=== PATIENT | male | born 1955 | race Caucasian/White ===

== ENCOUNTER 2016-10-18 13:24 | Emergency (ER) | payer BC ==
[~2016-10-18] VITALS: Ht 172.7 cm; Wt 100.0 kg
[2016-10-18] MEDS ORDERED: FLEXERIL10 MG PO (15:14)
[2016-10-18] MEDS ORDERED: NORCO 5/3251 TABLET PO (15:14)
[2016-10-18] MEDS ORDERED: ATORVASTATIN CA10 MG PO (15:23)
[2016-10-18] MEDS ORDERED: METOPROLOL SUCC25 MG PO (15:24)
[2016-10-18] MEDS ORDERED: LO-DOSE ASPIRIN81 M2 PO (15:25)
[2016-10-18 16:03] VITALS: BP 110/74
== END 2016-10-18 16:04 | disposition home or self-care (01) ==
LOC: EME 13:24 → EXP 13:24
PROC: 2W39X1Z Immobilization of Left Upper Extremity using Splint (ICD-10-PCS; principal; 2016-10-18)
DX: S52.502A Unspecified fracture of the lower end of left radius, initial encounter for closed fracture (principal); S52.611A Displaced fracture of right ulna styloid process, initial encounter for closed fracture; V00.318A Other snowboard accident, initial encounter; I25.2 Old myocardial infarction; Y92.838 Other recreation area as the place of occurrence of the external cause; Y93.23 Activity, snow (alpine) (downhill) skiing, snowboarding, sledding, tobogganing and snow tubing; Z95.1 Presence of aortocoronary bypass graft; Z95.5 Presence of coronary angioplasty implant and graft
CPT/HCPCS: 73090; 73100; 99281; 99285; J2270; J2405; J7030